=== PATIENT | male | born 1955 | race Caucasian/White ===

== ENCOUNTER 2023-02-02 11:30 | Day surgery (SDC) | payer MEDICARE, OTHER, MEDICAID ==
[2023-02-02] MEDS: Polymyxin B/Trimethoprim 10 ML Bottle EYELF SCH ×4 (11:38→13:24)
[2023-02-02] MEDS: Brimonidine 0.2% Ophth Soln 5 ML Bottle EYELF SCH ×4 (11:43→13:24)
[2023-02-02] MEDS: Phenylephrine 2.5% Ophth Soln 2 ML Bot EYELF SCH ×6 (11:50→12:54)
[2023-02-02] MEDS: Tropicamide 1% Ophth Soln 15 ML Bottle EYELF SCH ×4 (11:55→12:36)
[2023-02-02] MEDS: Tetracaine HCl/PF 0.5% 4 ML Bottle EYEBOTH SCH ×5 (12:35→13:05)
[2023-02-02] MEDS: Cefuroxime 10 MG/ML SYRINGE EYELF SCH ×2 (12:35→13:24)
[2023-02-02] MEDS: Lidocaine 1% PF 2 ML SDV INJECT SCH ×2 (12:35→13:06)
[2023-02-02] MEDS: Pilocarpine 4% Ophth Soln 15 ML Bot EYELF SCH ×2 (12:36→13:24)
[2023-02-02] MEDS ORDERED: Midazolam 1 MG/ML 2 ML SDV ONE (13:11)
[2023-02-02 13:56] VITALS: BP 107/62; PULSE 84
== END 2023-02-02 13:48 | disposition home or self-care (01) ==
LOC: JD.SDS 11:30 → EDSEX 13:30 → JD.SDS 13:48
PROVIDERS: ATTEND Ophthalmology
DX: H25.812 Combined forms of age-related cataract, left eye (principal); H52.31 Anisometropia; H16.103 Unspecified superficial keratitis, bilateral; H16.223 Keratoconjunctivitis sicca, not specified as Sjogren's, bilateral; H35.3131 Nonexudative age-related macular degeneration, bilateral, early dry stage; H02.834 Dermatochalasis of left upper eyelid; H02.831 Dermatochalasis of right upper eyelid; H35.373 Puckering of macula, bilateral; I11.0 Hypertensive heart disease with heart failure; I50.9 Heart failure, unspecified; F41.9 Anxiety disorder, unspecified; F03.90 Unspecified dementia, unspecified severity, without behavioral disturbance, psychotic disturbance, mood disturbance, and anxiety; I73.9 Peripheral vascular disease, unspecified; Z98.890 Other specified postprocedural states; Z87.891 Personal history of nicotine dependence; Z79.899 Other long term (current) drug therapy; Z96.1 Presence of intraocular lens; Z88.4 Allergy status to anesthetic agent
CPT/HCPCS: 66984; A9270; C1780; J0697; J2250; J3490